=== PATIENT | male | born 1960 ===

== ENCOUNTER 2024-11-01 07:50 | Day surgery (SDC) | payer OTHER ==
[~2024-11-01 07:50] MED LIST: ALTACE10 MG PO; CIALIS5 MG PO; NORVASC10 MG PO
[2024-11-01] MEDS ORDERED: METRONIDAZOLE/SODIUM CHLORIDE 500 MG/100 ML PIGGYBACK IV ONE (12:15)
[2024-11-01] MEDS ORDERED: HEMOSTATIC MATRIX 1 KIT KIT TOP ONE (12:15)
[2024-11-01] MEDS ORDERED: DIBUCAINE 30 GM TUBE RECTAL ONE (12:15)
[2024-11-01] MEDS ORDERED: CEFTRIAXONE SODIUM 2,000 MG VIAL IV ONE (12:15)
[2024-11-01] MEDS ORDERED: MORPHINE SULFATE 4 MG/ML VIAL IV ONE (15:35)
== END 2024-11-01 16:10 | disposition home or self-care (01) ==
LOC: CIR.AMB 07:50
PROVIDERS: ATTEND Colon & Rectal Surgery
DX: K64.2 Third degree hemorrhoids (principal); K64.4 Residual hemorrhoidal skin tags; Z88.6 Allergy status to analgesic agent